=== PATIENT | female | born 1970 | race Caucasian/White ===

== ENCOUNTER 2017-06-12 11:43 | Outpatient (CLI) | payer OTHER | END 2017-06-12 11:44 | disposition home or self-care (01) | LOC: BICMAMMO 11:43 | PROVIDERS: ATTEND Obstetrics & Gynecology | DX: Z12.31 Encounter for screening mammogram for malignant neoplasm of breast (principal); Z80.3 Family history of malignant neoplasm of breast | CPT/HCPCS: 77063; 77067 ==

== ENCOUNTER 2017-06-28 15:11 | Outpatient (CLI) | payer OTHER ==
[2017-06-28 16:16] LABS: Hemoglobin 12.7 g/dL (12.0-16.0); Mean Corpuscular HGB CONC 33.7 g/dL (32.0-36.0); Mean Corpuscular Hemoglobin 30.5 pg (27.0-31.0); Mean Corpuscular Volume 90.5 fl (81.0-99.0); Mean Platelet Volume 8.3 fL (7.4-10.4); Platelet Count 205 thou/uL (130-400); Red Blood Cell (RBC) Count 4.18 mill/uL (4.20-5.40); White Blood Cell (WBC) Count 3.6 thou/uL (4.8-10.8)
[2017-06-28 16:53] LABS: BHCG - Serum Negative (NEGATIVE); Pregs Control Background? CLEAR/WHITE (CLR/WHITE); Pregs Control Bar Appear? YES (CONTROL BAR)
== END 2017-06-28 15:12 | disposition home or self-care (01) ==
LOC: LABBT 15:11
PROVIDERS: ATTEND Obstetrics & Gynecology
DX: Z01.812 Encounter for preprocedural laboratory examination (principal); N92.0 Excessive and frequent menstruation with regular cycle; D21.9 Benign neoplasm of connective and other soft tissue, unspecified
CPT/HCPCS: 84703; 85027; 86850; 86900; 86901

== ENCOUNTER 2017-06-28 15:15 | Inpatient (IN) | payer OTHER ==
[2017-06-28 15:19] VITALS: BMI 27.1
--- NOTE | 2017-07-03 21:57 | HP ---
DATE OF ADMISSION: 07/04/2017 REASON FOR ADMISSION: Dysmenorrhea, menorrhagia, fibroids. SCHEDULED PROCEDURE: Total laparoscopic hysterectomy, bilateral salpingectomy. HISTORY OF PRESENT ILLNESS: Ms. Alfaro is a 47-year-old 2, para 2, status post , wh o has been my patient for many years. Not seen in several years and she came back to see me in April . She has been complaining of dysmenorrhea, menorrhagia, and heavy clots. She reports cycles lastin g 7 days using a pad or tampon q.1-2 hours during her heavy days on her bleeding leading the accident and making her avoid participation in family events. She desires definitive surgical management. 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 No history of dysplasia, x1. PAST MEDICAL HISTORY: Hypothyroid. PAST SURGICAL HISTORY: C-sections. ALLERGIES: Denies. MEDICATIONS: Synthroid. FAMILY HISTORY: Significant for malignant female breast neoplasm in sister and mother. REVIEW OF SYSTEMS: Noncontributory. PHYSICAL EXAMINATION: GENERAL: White female. VITAL SIGNS: 5 feet 6, 172, BMI 27.8, and blood pressure 124/84. HEENT: Within normal limits. LUNGS: Clear to auscultation bilaterally. HEART: Regular rhythm. BREASTS: Masses bilaterally. ABDOMEN: Soft, nontender, without rebound or guarding with no Pfannenstiel vulvar lesions. Vaginal discharge. Cervix parous. Uterus anteverted, irregular approximately 12-week size. No adnexal mass es. EXTREMITIES: Without clubbing, cyanosis or edema. LABORATORY AND X-RAY FINDINGS: Genetic testing for predisposition for female malignancies including BRCA 1 and 2 with negative. Pap was negative. Ultrasound was performed, which revealed an anteverte d uterus measuring 10 x 6 x 9 cm with a 3 cm posterior cervical fibroid and a 4 cm fundal fibroid, en docavitary fibroid was also noted. Right and left ovary were normal with no adnexal masses. IMPRESSION: Dysmenorrhea, menorrhagia, fibroid. PLAN: Discussed with patient options. We will proceed with total laparoscopic hysterectomy with reta ateral salpingectomy. We will administer appropriate antibiotic and DVT prophylaxis. Retrieval through morselization. A retrieval bag with GelPoint and umbilicus during total laparoscop ic hysterectomy.
[2017-07-04] MEDS ORDERED: CEFAZOLIN/Water 2 GM/20 ML SYRINGE ONE (06:14)
[2017-07-04] MEDS ORDERED: Fentanyl 100 MCG/2 ML VIAL ONE (06:51)
[2017-07-04] MEDS ORDERED: Bupivacaine HCl 0.5%/Epinephrine 1:200,000/PF 30 ml Vial ONE (06:53)
[2017-07-04] MEDS ORDERED: Midazolam HCl 2 mg/2 ml Vial ONE (07:12)
[2017-07-04] MEDS ORDERED: Ondansetron HCl/PF 4 MG/2 ML Vial IVP PRN ×2 (09:50→11:33)
[2017-07-04] MEDS ORDERED: Promethazine HCl 25 MG/ML VIAL IM PRN ×2 (09:50→11:33)
[2017-07-04] MEDS ORDERED: Promethazine HCl 25 MG/ML VIAL SLOW IVP PRN (09:50)
[2017-07-04] MEDS ORDERED: Ropivacaine HCl/PF 750 ML in Premix Bag 1 BAG NERVE BLCK SCH (10:15)
[2017-07-04] MEDS ORDERED: Simethicone Chewable 80 MG TAB PO PRN (11:33)
[2017-07-04] MEDS ORDERED: HYDROcodone/Acetaminophen 10/325 mg Tablet PO PRN (11:33)
[2017-07-04] MEDS ORDERED: Zolpidem Tartrate 5 MG TAB PO PRN (11:33)
[2017-07-04] MEDS ORDERED: Morphine 5 MG/ML SYRINGE SLOW IVP PRN ×2 (11:33)
[2017-07-04] MEDS: Acetaminophen 1,000 MG in Premix Bag 1 BAG IVPB SCH ×2 (12:18→17:21)
[2017-07-04] MEDS: Sodium Chloride 0.9% 1,000 ML IV SCH ×2 (12:18→19:30)
[2017-07-04] MEDS: Ketorolac Tromethamine 30 MG/ML VIAL IVP SCH ×2 (12:19→17:19)
--- NOTE | 2017-07-04 12:25 | OP ---
DATE OF PROCEDURE: 07/04/2017 PREOPERATIVE DIAGNOSES: Fibroids and menorrhagia. POSTOPERATIVE DIAGNOSES: Fibroids and menorrhagia. PROCEDURES PERFORMED: Total laparoscopic hysterectomy, bilateral salpingectomy. SURGEON: Diego Davis M.D. ELECTRIC INSTALLER: John Cobos D.O. ANESTHESIA: General endotracheal. ESTIMATED BLOOD LOSS: 100 mL. COMPLICATIONS: None. DRAINS: Lo to gravity. OPERATIVE FINDINGS: 1. Approximately 8-10 week size uterus with a lower uterine segment endocervical fibroid and fundal fibroid. 2. Normal appearing tubes and ovaries bilaterally. 3. Hemostasis with clear urine, counts correct at the end of the procedure. DISPOSITION: Recovery room in good condition. MEDICATIONS: Two grams Ancef preincision. DVT PROPHYLAXIS: SCDs. PAIN MANAGEMENT PROCEDURE: ON-Q pain pump single lumen 8 mL per hour, 0.2% ropivacaine placed in the pelvis. DESCRIPTION OF OPERATIVE PROCEDURE: After obtaining proper consent, patient was taken to the operati ng room where general endotracheal anesthesia achieved without difficulty. Lo catheter was placed in the bladder and the bladder drained approximately 100 mL of clear urine. Sliding speculum placed in vagina, cervix identified, grasped with single tooth tenaculum. Sounding the patient's uterus wa s very difficult secondary to the fibroid that was noted in the lower uterine segment. Lan Specialist was able to achieve getting a sound around it, but staying very lateral and then coming back anterior with the sound. It was serially dilated up to appropriate level for a TESS manipulator and it sounded to 9.5 cm. The 8 cm obturator with a 4 cm vaginal access control specialist was placed on the TESS. Be cause of the deformity of the cervical canal secondary to the fibroid, the sliding speculum as well a s a right-angle retractor had to be used to get the TESS to finally see it in its appropriate level w ith difficulty; however, it was achieved. Lan Specialist changed his gloves and turned his attention to th e abdominal portion of the procedure. A 5 mL of Marcaine injected at the base of umbilicus and a 12 mm skin incision made. Freeze needle placed at the abdominal cavity, confirmation of entry into the peritoneal cavity via saline drop test. Insufflation carried out with carbon dioxide to a max pressu re of 15, volume approximately 3.5 liters. A 12 mm noncutting trocar was placed through the umbilicu s. The patient was placed in steep Trendelenburg position. Findings as noted in the operative findi ngs were noted. Right and left lateral trocars lateral to the epigastric vessels for the da Valerio we re placed under direct visualization as well as an 11 mm education administrative assistant port in the right upper quadrant. Da Valerio was docked. Monopolar scissors in the right hand and bipolar fenestrated forceps in the le ft. The mesosalpinx was coagulated and transected and excised the fallopian tube on the patient's le ft. The uteroovarian was then coagulated and transected through the broad and the round, and down to approximately a centimeter above the level of the internal cervical os. Identical procedure carried out on the patient's right. Significant dense and filmy adhesions were noted of the bladder to the lower uterine segment and the anterior abdominal wall secondary to the patient's previous se ction. Blunt and sharp dissection meticulously was used to take down the bladder entering the avascu lar tissue plane between the bladder and the cervix and upper vagina. Bladder was inflated and defla stacie, taking care to avoid injury to it and to identify its margins. Bilaterally, the uterine vessels were skeletonized out. Tortuous varicosities were noted on both sides, right greater than left. Th galina were coagulated and taken down to the level of the apex of the vagina. The vagina was then enter ed posteriorly at 6 o'clock and extended from 6 to 3 and 6 to 9 anteriorly at 12 o'clock and from 12 to 3, and 12 to 9, finally amputating the specimen and 9 and 3 o'clock. The specimen was pulled into the vagina to maintain pneumoperitoneum. Suction irrigation was carried out. No major bleeding was noted along the cuff, it was closed using a suture lock, 2-0 PDS in a running continuous manner from the patient's right to left and then back to right. Suction irrigation was carried out which reveal ed good hemostasis throughout. Ureters had been identified and were noted to be lateral to the opera tive field. Tisseel was applied for hemostasis along all surgical pedicles. An ON-Q pain pump 8 mL per hour, 0.2% ropivacaine was placed in the pelvis extending from the right to the left ovarian moody a and across the apex of the vagina. Da Valerio instruments were removed and the da Valerio undocked. T rocars removed. The fascia was reapproximated the umbilicus with a 0 Vicryl in a UR5 needle. The sk in reapproximated x4 using 4-0 Monocryl and Dermabond. Legs were rotated up and the uterine specimen was pulled out of the vagina. Inspection of the vagina revealed there to be a 2 cm laceration in th e right lateral side of the vagina at approximately 9 o' clock approximately 2 cm below that of the a pex. This was felt to have been secondary to either the manipulator or the sliding speculum during m anipulator placement. It was not full thickness of the mucosa, but was bleeding hence it was closed using a running locking 0 Vicryl. Good hemostasis was noted after closure. Counts were correct. Th e patient was awakened, extubated, and taken to the recovery room in good condition.
[2017-07-05] MEDS: Ketorolac Tromethamine 30 MG/ML VIAL IVP SCH ×2 (00:53→06:21)
[2017-07-05] MEDS: Acetaminophen 1,000 MG in Premix Bag 1 BAG IVPB SCH ×2 (00:54→06:22)
[2017-07-05] MEDS: Sodium Chloride 0.9% 1,000 ML IV SCH (04:07)
[2017-07-05 05:14] LABS: Hemoglobin 11.5 g/dL (12.0-16.0); Mean Corpuscular HGB CONC 32.6 g/dL (32.0-36.0); Mean Platelet Volume 8.1 fL (7.4-10.4); Platelet Count 186 thou/uL (130-400); RBC Distribution Width 12.9 % (11.5-14.5); Red Blood Cell (RBC) Count 3.83 mill/uL (4.20-5.40); White Blood Cell (WBC) Count 8.4 thou/uL (4.8-10.8)
[2017-07-05 08:24] VITALS: BP 122/74; TEMP 97.8
--- NOTE | 2017-07-05 11:54 | DIS ---
DATE OF ADMISSION: 07/04/2017 DATE OF DISCHARGE: 07/05/2017 SUMMARY OF HOSPITAL COURSE: The patient was admitted and underwent a total laparoscopic hysterectomy with bilateral salpingectomy for fibroids and menorrhagia. The patient had an unremarkable postoper ative course with 100 mL EBL. The patient was able to void with ease, tolerating p.o. and passing ga s. Hematocrit postoperative day #1 was 35%. She will be discharged home with ON-Q pain pump in situ . The patient was given [place] prescription at the office. She will be followed up at [facility] [place] in 1 month.
[2017-07-05] MEDS ORDERED: HYDROcodone/Acetaminophen 10/325 mg Tablet PO PRN ×2 (18:00)
== END 2017-07-05 12:53 | disposition home or self-care (01) | DRG 743 ==
LOC: SURG A 07-04 06:03 → 3SE 07-04 11:32 → EDSTATUS 07-04 15:15
PROVIDERS: ADMIT Obstetrics & Gynecology; ATTEND Obstetrics & Gynecology
PROC: 0UT94ZZ Resection of Uterus, Percutaneous Endoscopic Approach (ICD-10-PCS; principal; 2017-07-04)
PROC: 0UT74ZZ Resection of Bilateral Fallopian Tubes, Percutaneous Endoscopic Approach (ICD-10-PCS; 2017-07-04)
PROC: 8E0W4CZ Robotic Assisted Procedure of Trunk Region, Percutaneous Endoscopic Approach (ICD-10-PCS; 2017-07-04)
DX: N92.0 Excessive and frequent menstruation with regular cycle (principal); N94.6 Dysmenorrhea, unspecified; D25.9 Leiomyoma of uterus, unspecified; R93.8 Abnormal findings on diagnostic imaging of other specified body structures; E03.9 Hypothyroidism, unspecified
CPT/HCPCS: 36415; 85027; 88307; A4216; J0131; J0670; J1885; J2250; J2795; J3010

== ENCOUNTER 2018-06-21 09:57 | Outpatient (CLI) | payer OTHER ==
--- NOTE | 2018-06-21 10:49 | MMO ---
Bilateral MAMMO Bilat Screen [facility]. CLINICAL HISTORY: Patient is 48 years old and is seen for screening. The patient has the following family history of breast cancer: sister, at age 41. The patient has no personal history of cancer. VIEWS: The views performed were: bilateral craniocaudal with tomosynthesis; bilateral mediolateral oblique with tomosynthesis; and bilateral exaggerated craniocaudal. FILMS COMPARED: The present examination has been compared to prior imaging studies performed at [facility] on 03/23/2014, 03/26/2014, 04/13/2015, 05/17/2016 and 06/12/2017. MAMMOGRAM FINDINGS: The breasts are heterogeneously dense, which could obscure a lesion on mammography. There are stable calcifications seen in the left breast. There are no suspicious masses, suspicious calcifications, or new areas of architectural distortion. IMPRESSION: THERE IS NO MAMMOGRAPHIC EVIDENCE OF MALIGNANCY. A ROUTINE FOLLOW-UP MAMMOGRAM IN 1 YEAR IS RECOMMENDED. THE RESULTS OF THIS EXAM WERE SENT TO THE PATIENT. ACR BI-RADS Category 2 - Benign finding MAMMOGRAPHY NOTE: 1. A negative mammogram report should not delay a biopsy if a dominant of clinically suspicious mass is present. 2. Approximately 10% to 15% of breast cancers are not detected by mammography. 3. Adenosis and dense breasts may obscure an underlying neoplasm.
== END 2018-06-21 09:58 | disposition home or self-care (01) ==
LOC: BICMAMMO 09:57
PROVIDERS: ATTEND Obstetrics & Gynecology
DX: Z12.31 Encounter for screening mammogram for malignant neoplasm of breast (principal); Z80.3 Family history of malignant neoplasm of breast
CPT/HCPCS: 77063; 77067

== ENCOUNTER 2019-07-15 10:49 | Outpatient (CLI) | payer OTHER ==
--- NOTE | 2019-07-15 11:49 | MMO ---
Bilateral MAMMO Bilat Screen [facility]. CLINICAL HISTORY: Patient is 49 years old and is seen for screening. The patient has the following family history of breast cancer: sister, at age 41. The patient has no personal history of cancer. VIEWS: The views performed were: bilateral craniocaudal with tomosynthesis; bilateral mediolateral oblique with tomosynthesis; and bilateral exaggerated craniocaudal. FILMS COMPARED: The present examination has been compared to prior imaging studies performed at [facility] on 04/13/2015, 05/17/2016, 06/12/2017 and 06/21/2018. This study has been interpreted with the assistance of computer-aided detection. MAMMOGRAM FINDINGS: The breasts are heterogeneously dense, which could obscure a lesion on mammography. There are benign appearing calcifications in the left breast. There are no suspicious masses, suspicious calcifications, or new areas of architectural distortion. IMPRESSION: THERE IS NO MAMMOGRAPHIC EVIDENCE OF MALIGNANCY. A ROUTINE FOLLOW-UP MAMMOGRAM IN 1 YEAR IS RECOMMENDED. THE RESULTS OF THIS EXAM WERE SENT TO THE PATIENT. ACR BI-RADS Category 2 - Benign finding MAMMOGRAPHY NOTE: 1. A negative mammogram report should not delay a biopsy if a dominant of clinically suspicious mass is present. 2. Approximately 10% to 15% of breast cancers are not detected by mammography. 3. Adenosis and dense breasts may obscure an underlying neoplasm. Reported by: PARDEEP ALBARADO MD Electonically Signed: [id number]
== END 2019-07-15 10:50 | disposition home or self-care (01) ==
LOC: BICMAMMO 10:49
PROVIDERS: ATTEND Obstetrics & Gynecology
DX: Z12.31 Encounter for screening mammogram for malignant neoplasm of breast (principal)
CPT/HCPCS: 77063; 77067